=== PATIENT | female | born 1985 | race Caucasian/White ===

== ENCOUNTER 2017-04-02 00:17 | Emergency (ER) | payer MEDICAID ==
[2013-11-14 09:46] VITALS: Ht 165.1 cm; Wt 103.9 kg
[~2017-04-02] VITALS: Ht 165.1 cm; Wt 103.9 kg
[~2017-04-02 00:17] MED LIST: ALB18R INH; ALBU8TAB4 PO; AMOX-362 PO; AZIT-18 PO; CETI-176 PO; CLON-1; CYCL-343 PO; CYCL10TA29 PO; DIA5 PO; FOLI-68 PO; GABA-549 PO; GUAI473L81 PO; HYDR-4309 PO; HYDR2TAB74 PO; LEVO1TBD11 PO; LOR5/325 PO; METH-543 PO; METH4TAB66 PO; MOMR ENA; NAPR-724 PO; NAPR550T20 PO; OXYC-865 PO; PARO-243 PO; PRED20TA6 PO; SERT-173 PO; SULF-198 PO; TOPI-120 PO; ZOLP-350 PO
[2017-04-02] MEDS ORDERED: DICYCLOMINE HCL 10 MG CAP PO ONE (00:50)
[2017-04-02 01:19] LABS: PLATELET COUNT, AUTOMATED 324 K/uL (150-450)
--- NOTE | 2017-04-02 01:21 | ER Report ---
History and Physical Time Seen By MD: 12:20 Hx. of Stated Complaint: PT REPORTS HAVING BRIGHT RED BLOOD IN STOOL. PT REPORTS POSSIBLE C-DIFF. HPI/ROS CHIEF COMPLAINT: Bright red blood in stool, painless HISTORY OF PRESENT ILLNESS: 32-year-old female here for painless bright red blood in stool 3 days, and diarrhea has been bloody. She reports finishing course of Keflex 11 days for laminectomy skin infection and suture site which has been improving. Diarrhea for the past 2 weeks. Bloating nausea occasional vomiting without blood. Reports prior history of anal fissure that was fixed with surgery. No fevers or chills. No suspected toxic food ingestions. She saw an urgent care provider recently who suggested possibility of C. difficile colitis. She reports no priors. She is unsure if she can provide a stool sample today. Pain today is in the right upper quadrant and 7 out of 10. She feels bloated. She feels like she should part or burp but can do neither that she told her coworkers today while at work. She is on a treatment plan for narcotics. REVIEW OF SYSTEMS: Constitutional: No fever, no chills. Eyes: No discharge. ENT: No sore throat. Cardiovascular: No chest pain, no palpitations. Respiratory: No cough, no shortness of breath. Gastrointestinal: Otherwise unremarkable Genitourinary: No hematuria. Musculoskeletal: No back pain. Skin: No rashes. Neurological: No headache. Allergies: Coded Allergies: morphine (Verified Allergy, Intermediate, CHEST PAIN, 04/02/17) pineapple (Verified Allergy, Unknown, 04/02/17) Uncoded Allergies: onions (Allergy, Unknown, 04/29/14) Home Meds Active Scripts Albuterol Sulfate (VENTOLIN HFA) 18 Gm Inh, 2 PUFF INH Q4-6H Y for SHORTNESS OF BREATH, #1 INH Prov:PARISHBASILIO SENIOR MAINTENANCE MACHINIST 02/10/15 Reported Medications Gabapentin (GABAPENTIN) 300 Mg Capsule, 600 MG PO HS, CAPSULE 12/08/16 Gabapentin (GABAPENTIN) 300 Mg Capsule, 300 MG PO BID, CAPSULE 300mg am, 300mg at noon, 05/01/16 Folic Acid (FOLIC ACID) 1 Mg Tablet, 1 MG PO QDAY, TAB 12/17/15 Paroxetine Hcl (PAXIL) 20 Mg Tablet, 60 MG PO QAM, #30 2 Refills 11/13/13 Topiramate (TOPAMAX) 50 Mg Tablet, 200 MG PO BID, #90 2 Refills TAKE ONE IN THE MORNING 2 AT BEDITME 02/04/13 Discontinued Scripts Cyclobenzaprine Hcl (CYCLOBENZAPRINE HCL) 10 Mg Tablet, 10 MG PO Q8H Y for MUSCLE SPASMS, #20 TAB 0 Refills Prov:NATALY WELLER MD 01/18/17 Oxycodone Hcl/Acetaminophen (PERCOCET 5-325 MG TABLET) 1 Each Tablet, 1 EACH PO Q4H Y for PAIN, #10 TAB 0 Refills Prov:NATALY WELLER MD 01/18/17 Amoxicillin (AMOXICILLIN) 500 Mg Capsule, 1 CAP PO Q8H, #15 CAPSULE 0 Refills Prov:NATALY WELLER MD 01/18/17 Oxycodone Hcl/Acetaminophen (PERCOCET 5-325 MG TABLET) 1 Each Tablet, 1 EACH PO Q4H Y for PAIN, #15 TAB 0 Refills Prov:NATALY WELLER MD 01/12/17 Cyclobenzaprine Hcl (CYCLOBENZAPRINE HCL) 10 Mg Tablet, 10 MG PO Q8H Y for MUSCLE SPASMS, #60 TAB 0 Refills Prov:NATALY WELLER MD 01/12/17 Cyclobenzaprine Hcl (CYCLOBENZAPRINE HCL) 10 Mg Tablet, 5-10 MG PO TID Y for MUSCLE SPASMS, #9 TAB Prov:BASILIO LUGO 01/04/17 Oxycodone Hcl/Acetaminophen (PERCOCET 5-325 MG TABLET) 1 Each Tablet, 1 EACH PO Q4-6H Y for PAIN, #20 TAB Prov:BASILIO LUGO 01/04/17 Hx Smoking: Yes Smoking Status: Current: Some Days Smoker Exposure to Second Hand Smoke?: Yes Hx Substance Use Disorder: No Hx Alcohol Use: Yes (few on weekends) Constitutional Vital Sign - Last 24 Hours 04/02/17 04/02/17 04/02/17 04/02/17 00:20 00:25 00:47 01:11 Temp 98.2 Pulse 88 80 Resp 14 B/P (MAP) 132/76 (94) 132/76 123/83 (96) Pulse Ox 96 O2 Delivery Room Air Physical Exam General Appearance: The patient is alert, has no immediate need for airway protection and no signs of toxicity. She is well-appearing and appears to be in no acute distress Eyes: Pupils equal and round no pallor or injection. ENT, Mouth: Mucous membranes are moist. Respiratory: There are no retractions, lungs are clear to auscultation. Cardiovascular: Regular rate and rhythm. No murmurs gallops or rubs Gastrointestinal: She is tender in the right upper quadrant. Otherwise normal exam. Rectal exam was chaperoned by female RN Jazz Balderrama. Anoscopy was performed. See procedure note for results. Neurological: A and O 4 cranial nerve II through XII intact no motor or sensory deficits gross exam no cerebellar deficits gross exam. Skin: Warm and dry, no rashes. Musculoskeletal: Neck is supple non tender. Extremities are nontender, nonswollen and have full range of motion. No peripheral edema DIFFERENTIAL DIAGNOSIS: After history and physical exam differential diagnosis was considered for Escherichia coli Yersinia, Campylobacter, other GI bacterium , viral diarrheal illness, recurrent rectal fistula, internal hemorrhoids, external hemorrhoids, lower GI bleed, colon mass, colon polyps, upper GI bleed, ulcerative peptic disease, duodenitis, gastritis, pancreatitis, cholecystitis, cholelithiasis, choledocholithiasis, no signs of pneumonia, NV, or AAA. This is an incomplete list of diagnoses considered. Medical Decision Making Data Points Result Diagram: 04/02/17 0105 04/02/17 010 Laboratory Hematology Test 04/02/17 01:05 04/02/17 01:30 Red Blood Count 4.69 M/uL (4.17-5.56) Mean Corpuscular Volume 89.3 fL (80.0-96.0) Mean Corpuscular Hemoglobin 30.4 pg (26.0-33.0) Mean Corpuscular Hemoglobin Concent 34.1 g/dL (32.0-36.0) Red Cell Distribution Width 13.4 % (11.5-14.5) Mean Platelet Volume 6.2 fL (7.2-11.1) Neutrophils (%) (Auto) 58.1 % (39.4-72.5) Lymphocytes (%) (Auto) 32.5 % (17.6-49.6) Monocytes (%) (Auto) 7.0 % (4.1-12.4) Eosinophils (%) (Auto) 1.8 % (0.4-6.7) Basophils (%) (Auto) 0.6 % (0.3-1.4) Nucleated RBC Relative Count (auto) 0.0 /100WBC Neutrophils # (Auto) 5.3 K/uL (2.0-7.4) Lymphocytes # (Auto) 3.0 K/uL (1.3-3.6) Monocytes # (Auto) 0.6 K/uL (0.3-1.0) Eosinophils # (Auto) 0.2 K/uL (0.0-0.5) Basophils # (Auto) 0.1 K/uL (0.0-0.1) Nucleated RBC Absolute Count (auto) 0.00 K/uL Sodium Level 140 mmol/L (137-145) Potassium Level 3.7 mmol/L (3.5-5.0) Chloride Level 105 mmol/L (98-107) Carbon Dioxide Level 23 mmol/L (22-31) Blood Urea Nitrogen 13 mg/dl (7-18) Creatinine 0.70 mg/dl (0.52-1.04) Glomerular Filtration Rate Calc > 60.0 Random Glucose 79 mg/dl (75-110) Calcium Level 9.4 mg/dl (8.4-10.2) Total Bilirubin 0.3 mg/dl (0.2-1.3) Aspartate Amino Transf (AST/SGOT) 22 U/L (0-35) Alanine Aminotransferase (ALT/SGPT) 29 U/L (0-56) Alkaline Phosphatase 58 U/L (0-126) Total Protein 8.1 gm/dl (6.3-8.2) Albumin 4.4 g/dl (3.5-5.0) Lipase 107 U/L (23-300) Human Chorionic Gonadotropin, Qual Negative (NEGATIVE) Urine Color Yellow Urine Clarity Cloudy Urine pH 7.0 pH (4.8-9.5) Urine Specific [place] 1.017 Urine Protein Negative mg/dL (NEGATIVE) Urine Glucose (UA) Negative mg/dL (NEGATIVE) Urine Ketones Negative mg/dL (NEGATIVE) Urine Blood Small (NEGATIVE) Urine Nitrite Negative (NEGATIVE) Urine Bilirubin Negative (NEGATIVE) Urine Urobilinogen Negative mg/dL (0.2-1.9) Urine Leukocyte Esterase Trace (NEGATIVE) Urine RBC 3 /HPF (0-2/HPF) Urine WBC 1 /HPF (0-5/HPF) Urine Squamous Epithelial Cells Many /LPF (</=FEW) Urine Bacteria Negative /HPF (NONE-FEW) Urine Mucus None /HPF (NONE-FEW) Chemistry Test 04/02/17 01:05 04/02/17 01:30 White Blood Count 9.1 k/uL (4.5-11.0) Red Blood Count 4.69 M/uL (4.17-5.56) Hemoglobin 14.3 g/dL (12.0-16.0) Hematocrit 41.9 % (34.0-47.0) Mean Corpuscular Volume 89.3 fL (80.0-96.0) Mean Corpuscular Hemoglobin 30.4 pg (26.0-33.0) Mean Corpuscular Hemoglobin Concent 34.1 g/dL (32.0-36.0) Red Cell Distribution Width 13.4 % (11.5-14.5) Platelet Count 324 K/uL (150-450) Mean Platelet Volume 6.2 fL (7.2-11.1) Neutrophils (%) (Auto) 58.1 % (39.4-72.5) Lymphocytes (%) (Auto) 32.5 % (17.6-49.6) Monocytes (%) (Auto) 7.0 % (4.1-12.4) Eosinophils (%) (Auto) 1.8 % (0.4-6.7) Basophils (%) (Auto) 0.6 % (0.3-1.4) Nucleated RBC Relative Count (auto) 0.0 /100WBC Neutrophils # (Auto) 5.3 K/uL (2.0-7.4) Lymphocytes # (Auto) 3.0 K/uL (1.3-3.6) Monocytes # (Auto) 0.6 K/uL (0.3-1.0) Eosinophils # (Auto) 0.2 K/uL (0.0-0.5) Basophils # (Auto) 0.1 K/uL (0.0-0.1) Nucleated RBC Absolute Count (auto) 0.00 K/uL Glomerular Filtration Rate Calc > 60.0 Calcium Level 9.4 mg/dl (8.4-10.2) Total Bilirubin 0.3 mg/dl (0.2-1.3) Aspartate Amino Transf (AST/SGOT) 22 U/L (0-35) Alanine Aminotransferase (ALT/SGPT) 29 U/L (0-56) Alkaline Phosphatase 58 U/L (0-126) Total Protein 8.1 gm/dl (6.3-8.2) Albumin 4.4 g/dl (3.5-5.0) Lipase 107 U/L (23-300) Human Chorionic Gonadotropin, Qual Negative (NEGATIVE) Urine Color Yellow Urine Clarity Cloudy Urine pH 7.0 pH (4.8-9.5) Urine Specific [place] 1.017 Urine Protein Negative mg/dL (NEGATIVE) Urine Glucose (UA) Negative mg/dL (NEGATIVE) Urine Ketones Negative mg/dL (NEGATIVE) Urine Blood Small (NEGATIVE) Urine Nitrite Negative (NEGATIVE) Urine Bilirubin Negative (NEGATIVE) Urine Urobilinogen Negative mg/dL (0.2-1.9) Urine Leukocyte Esterase Trace (NEGATIVE) Urine RBC 3 /HPF (0-2/HPF) Urine WBC 1 /HPF (0-5/HPF) Urine Squamous Epithelial Cells Many /LPF (</=FEW) Urine Bacteria Negative /HPF (NONE-FEW) Urine Mucus None /HPF (NONE-FEW) Urinalysis Test 04/02/17 01:30 Urine Color Yellow Urine Clarity Cloudy Urine pH 7.0 pH (4.8-9.5) Urine Specific [place] 1.017 Urine Protein Negative mg/dL (NEGATIVE) Urine Glucose (UA) Negative mg/dL (NEGATIVE) Urine Ketones Negative mg/dL (NEGATIVE) Urine Blood Small (NEGATIVE) Urine Nitrite Negative (NEGATIVE) Urine Bilirubin Negative (NEGATIVE) Urine Urobilinogen Negative mg/dL (0.2-1.9) Urine Leukocyte Esterase Trace (NEGATIVE) Urine RBC 3 /HPF (0-2/HPF) Urine WBC 1 /HPF (0-5/HPF) Urine Squamous Epithelial Cells Many /LPF (</=FEW) Urine Bacteria Negative /HPF (NONE-FEW) Urine Mucus None /HPF (NONE-FEW) ED Course/Re-evaluation ED Course Risks and benefits of endoscopy performed in the ED were discussed with the patient who consents. Indication: Evaluation for internal hemorrhoids or other source of lower GI bleed. Procedure 04/02/2017 1:10:51 am Procedure note: Anoscopy Indication: Painless bright red blood per rectum Technique: The patient was positions in the left lateral decubitus position and instructed to relax. Surgery lube was applied to the anal scope which was fit previously to the light source. The stylette was placed inside the tube. The device was inserted gently with gentle pressure and stylette was removed. The light in the illuminated the johnston of the rectum and the scope was slowly removed to look for internal hemorrhoids. Findings are as per physical exam. Decision to Disposition Date: Apr 02, 2017 Decision to Disposition Time: 03:39 Depart Departure Latest Vital Signs Vital Signs Date Time Temp Pulse Resp B/P (MAP) Pulse Ox O2 Delivery O2 Flow Rate FiO2 04/02/17 01:11 123/83 (96) 04/02/17 00:47 80 04/02/17 00:25 98.2 14 96 Room Air Impression: Primary Impression: Abdominal pain Additional Impression: Diarrhea Condition: Improved Disposition: HOME OR SELF-CARE Referrals: KING QUINTANILLA SENIOR MAINTENANCE MACHINIST (PCP) New Scripts Loperamide Hcl/Simethicone (IMODIUM MULTI-SYMPTOM REL CPLT) 1 Each Tablet 1 EACH PO DIRECTED Y for DIARRHEA for 7 Days, #20 Prov: DAMIR DIETZ MD 04/02/17 Patient Instructions: Acute Diarrhea (ED) Problem Qualifiers DAMIR DIETZ MD Apr 02, 2017 01:21
[2017-04-02] MEDS ORDERED: MAG HYD/AL HYD/SIMETH 30ML UDC PO ONE (03:10)
[2017-04-02] MEDS ORDERED: LIDOCAINE 2% VISC SLN 15ML UDC PO ONE (03:10)
[2017-04-02] MEDS ORDERED: ATRO/SCOPOL/HYOSCY/PB 5 ML ELX PO ONE ×2 (03:10→03:20)
[2017-04-02] MEDS: GI COCKTAIL 60 ML BTL PO PRN ×2 (03:19→03:20)
--- NOTE | 2017-04-02 03:21 | RADIOLOGY IMAGING REPORT ---
FACILITY: [facility] - [place] PATIENT NAME: Meredith John : 1985 MR: [id number] V: [id number] EXAM DATE: ORDERING PHYSICIAN: DAMIR DIETZ TECHNOLOGIST: Location: [facility] Patient: Meredith John : 1985 Visit/Account:[id number] Date of Sevice: 04/02/2017 GALLBLADDER HISTORY: Abdominal pain COMPARISON: None. FINDINGS: Gallbladder: No gallstones. No wall thickening. No pericholecystic fluid Liver: 17 cm. No focal liver lesions. Common duct: Normal, 3.6 mm diameter. Pancreas: Obscured by overlying bowel gas. Pancreatic head where visualized is grossly normal Right kidney: 10 x 5 x 5 cm. No hydronephrosis. No cortical mass lesions Upper abdominal aorta and IVC: Patent. Ascites: None visualized. IMPRESSION: 1. Negative ultrasound for acute pathology. Specifically no cholelithiasis or cholecystitis change Report Dictated By: Abisai Cortez MD at 04/02/2017 3:04 AM Report E-Signed By: Abisai Cortez MD at 04/02/2017 3:10 AM WSN:[id number]
--- NOTE | 2017-04-02 03:32 | RADIOLOGY IMAGING REPORT ---
FACILITY: [facility] - [place] PATIENT NAME: Meredith John : 1985 MR: [id number] V: [id number] EXAM DATE: ORDERING PHYSICIAN: DAMIR DIETZ TECHNOLOGIST: Location: [facility] - [place] Patient: Meredith John : 1985 Visit/Account:[id number] Date of Sevice: 04/02/2017 CHEST SINGLE AP History: Abdominal pain Comparison 12/16/2014. FINDINGS: Lungs are clear, no effusion. No pneumothorax. Heart size within normal limits. Mediastinal contour w ithin normal limits. IMPRESSION: No evidence of acute cardiopulmonary disease. Report Dictated By: Jose Carlos Sue MD at 04/02/2017 3:27 AM Report E-Signed By: Jose Carlos Sue MD at 04/02/2017 3:28 AM WSN:[id number]
[2017-04-02] MEDS ORDERED: LOPE1TAB55 PO (03:42)
[2017-04-02 04:01] VITALS: BP 110/72
== END 2017-04-02 04:07 | disposition home or self-care (01) ==
LOC: ER 00:18
DX: R10.11 Right upper quadrant pain (principal); R19.7 Diarrhea, unspecified
CPT/HCPCS: 36415; 71010; 76705; 81001; 82040; 82247; 82310; 82374; 82435; 82565; 82947; 83690; 84075; 84132; 84155; 84295; 84450; 84460; 84520; 84703; 85025; 99284

== ENCOUNTER 2017-08-27 18:19 | Emergency (ER) | payer BC, MEDICAID ==
[2013-11-14 09:46] VITALS: Wt 113.4 kg
[~2017-08-27 18:19] MED LIST changes: +LOPE1TAB55 PO; -NAPR-724 PO; +NAPR500T31 PO
[2017-08-27] MEDS ORDERED: NOR25 PO (18:28)
--- NOTE | 2017-08-27 18:35 | ER Report ---
History and Physical Time Seen By MD: 18:35 Hx. of Stated Complaint: SORE THROAT, HEADACHE AND SINUS PRESSURE. REPORTS SHE COMPLETED A COURSE OF AUGMENTIN LAST WEEK FOR SIMILAR SYMPTOMS, BUT HAS NOT FEEL BETTER. HPI/ROS CHIEF COMPLAINT: sore throat, sinus problems HISTORY OF PRESENT ILLNESS: This is a 32 year old female. She has had a couple of weeks of symptoms of cough and sinus problems. She was seen at urgent care. She was told that she had some changes in the right upper lobe of her lungs and thought she might have a sinus infection. She was prescribed 7 days of Augmentin which she completed. She was feeling better, but not completely. Was exposed to family members who have strep and now she is having sore throat and upset stomach. Some loose stools. Intermittently feeling like fevers. Allergies: Coded Allergies: morphine (Verified Allergy, Intermediate, CHEST PAIN, 08/27/17) pineapple (Verified Allergy, Unknown, 08/27/17) Uncoded Allergies: onions (Allergy, Unknown, 04/29/14) Home Meds Active Scripts Azithromycin (ZITHROMAX) 250 Mg Tablet, 2 TAB PO QDAY, #4 TAB 0 Refills Prov:NATALY WELLER MD 08/27/17 Albuterol Sulfate (VENTOLIN HFA) 18 Gm Inh, 2 PUFF INH Q4-6H Y for SHORTNESS OF BREATH, #1 INH Prov:BASILIO LUGO CLINICAL DENTAL TECHNICIAN 02/10/15 Reported Medications Nortriptyline Hcl (NORTRIPTYLINE HCL) 25 Mg Cap, 25 MG PO HS, CAP 08/27/17 Folic Acid (FOLIC ACID) 1 Mg Tablet, 1 MG PO QDAY, TAB 12/17/15 Paroxetine Hcl (PAXIL) 20 Mg Tablet, 60 MG PO QAM, #30 2 Refills 11/13/13 Topiramate (TOPAMAX) 50 Mg Tablet, 200 MG PO BID, #90 2 Refills TAKE ONE IN THE MORNING 2 AT BEDITME 02/04/13 Discontinued Reported Medications Gabapentin (GABAPENTIN) 300 Mg Capsule, 600 MG PO HS, CAPSULE 12/08/16 Gabapentin (GABAPENTIN) 300 Mg Capsule, 300 MG PO BID, CAPSULE 300mg am, 300mg at noon, 05/01/16 Discontinued Scripts Loperamide Hcl/Simethicone (IMODIUM MULTI-SYMPTOM REL CPLT) 1 Each Tablet, 1 EACH PO DIRECTED Y for DIARRHEA for 7 Days, #20 Prov:DAMIR DIETZ MD 04/02/17 Reviewed Nurses Notes: Yes Hx Smoking: Yes Smoking Status: Current: Some Days Smoker Exposure to Second Hand Smoke?: Yes Hx Substance Use Disorder: No Hx Alcohol Use: Yes (few on weekends) Constitutional Vital Sign - Last 24 Hours 08/27/17 08/27/17 08/27/17 08/27/17 18:23 18:24 18:34 19:04 Temp 98.1 Pulse 100 106 100 Resp 18 B/P (MAP) 119/80 (93) 119/80 Pulse Ox 96 95 95 O2 Delivery Room Air 08/27/17 08/27/17 08/27/17 08/27/17 19:09 19:24 19:39 19:54 Pulse 100 109 105 108 Pulse Ox 95 95 94 97 08/27/17 08/27/17 08/27/17 08/27/17 20:06 20:09 20:24 20:30 Pulse 101 B/P (MAP) 127/91 (103) 103/80 (88) Pulse Ox 95 94 08/27/17 20:39 Pulse 108 Pulse Ox 95 Physical Exam General Appearance: The patient is alert, has no immediate need for airway protection and no current signs of toxicity. Eyes: Pupils equal and round, no injection. ENT: Normal oral mucosa. Moist mucous membranes. Posterior oropharynx is very erythematous with exudates. Tympanic membranes are normal. Neck: Neck is supple, submandibular lymphadenopathy which is tender. Respiratory: Chest is non tender, lungs are clear to auscultation. Cardiac: Regular rate and rhythm. Musculoskeletal: Extremities have full range of motion. Skin: No rashes or lesions. DIFFERENTIAL DIAGNOSIS: After history and physical exam differential diagnosis was considered for sore throat, exposure to strep. Unsure is symptoms are viral in origin, incomplete treatment with Augmentin with some GI side effects or new strep. Medical Decision Making Data Points Laboratory Hematology Test 08/27/17 18:31 Group A Streptococcus Screen Negative (NEGATIVE) Chemistry Test 08/27/17 18:31 Group A Streptococcus Screen Negative (NEGATIVE) EKG/Imaging Imaging CHEST PA AND LAT HISTORY: Cough. Sinus discomfort. COMPARISON: 08/12/2017 and studies dating to 02/10/2015. TECHNIQUE: PA and lateral views of the chest. FINDINGS: Pulmonary: Lungs are clear. There is no pneumothorax or pleural effusion. Cardiomediastinal: Cardiac and mediastinal silhouettes are within normal limits. Bones/soft tissues: No acute osseous abnormality. There is stable wedging of T11. The visible abdomen is normal. IMPRESSION: 1. No acute cardiopulmonary process. Report Dictated By: Kayy Morley at 08/27/2017 8:10 PM ED Course/Re-evaluation ED Course Magic mouthwash given to help with throat pain. Chest x-ray and strep negative. Uncertain if symptoms are from failure of treatment, incomplete treatment, or if this was just a viral process all along, but because she was getting better and now worsening, will begin a course of Azithromycin which should cover her for the next 10 days. We discussed symptomatic treatment as well. Decision to Disposition Date: August 27, 2017 Decision to Disposition Time: 20:36 Depart Departure Latest Vital Signs Vital Signs Date Time Temp Pulse Resp B/P (MAP) Pulse Ox O2 Delivery O2 Flow Rate FiO2 08/27/17 20:39 108 95 08/27/17 20:30 103/80 (88) 08/27/17 18:24 98.1 18 Room Air Impression: Primary Impression: Upper respiratory infection Condition: Improved Disposition: HOME OR SELF-CARE Referrals: KING QUINTANILLAP (PCP) New Scripts Azithromycin (ZITHROMAX) 250 Mg Tablet 2 TAB PO QDAY, #4 TAB 0 Refills Prov: NATALY WELLER MD 08/27/17 Patient Instructions: Pharyngitis (ED), Upper Respiratory Infection (ED) Additional Instructions: Take the antibiotic Azithromycin 250mg, two tablets once a day for 2 more days. Magic mouthwash, 1 teaspoon every 6 hours swish, gargle and swallow as needed for sore throat. Problem Qualifiers Primary Impression: Upper respiratory infection URI type: acute pharyngitis Pharyngitis/tonsillitis etiology: unspecified etiology Qualified Codes: J02.9 - Acute pharyngitis, unspecified NATALY WELLER MD August 27, 2017 18:35
[2017-08-27] MEDS ORDERED: LIDOCAINE 2% VISC SLN 15ML UDC PO ONE (20:10)
[2017-08-27] MEDS ORDERED: MAG HYD/AL HYD/SIMETH 30ML UDC PO ONE (20:10)
--- NOTE | 2017-08-27 20:15 | RADIOLOGY IMAGING REPORT ---
FACILITY: [facility] - [place], [place] PATIENT NAME: Meredith John : 1985 MR: [id number] V: [id number] EXAM DATE: ORDERING PHYSICIAN: NATALY WELLER TECHNOLOGIST: Location: [facility] - [place] Patient: Meredith John : 1985 Visit/Account:[id number] Date of Sevice: 08/27/2017 CHEST PA AND LAT HISTORY: Cough. Sinus discomfort. COMPARISON: 08/12/2017 and studies dating to 02/10/2015. TECHNIQUE: PA and lateral views of the chest. FINDINGS: Pulmonary: Lungs are clear. There is no pneumothorax or pleural effusion. Cardiomediastinal: Cardiac and mediastinal silhouettes are within normal limits. Bones/soft tissues: No acute osseous abnormality. There is stable wedging of T11. The visible abdomen is normal. IMPRESSION: 1. No acute cardiopulmonary process. Report Dictated By: Kayy Morley at 08/27/2017 8:10 PM Report E-Signed By: Kayy Morley at 08/27/2017 8:12 PM WSN:[id number]
[2017-08-27 20:30] VITALS: BP 103/80
[2017-08-27] MEDS ORDERED: AZITHROMYCIN 250 MG TAB TH PO ONE (20:35)
[2017-08-27] MEDS ORDERED: AZIT-1 PO (20:38)
== END 2017-08-27 20:42 | disposition home or self-care (01) ==
LOC: ER 18:31
DX: J06.9 Acute upper respiratory infection, unspecified (principal)
CPT/HCPCS: 71046; 87081; 87880; 99284; Q0163

== ENCOUNTER 2017-08-28 20:40 | Emergency (ER) | payer BC ==
[2013-11-14 09:46] VITALS: Wt 113.4 kg
[~2017-08-28 20:40] MED LIST changes: +AZIT-1 PO; +NOR25 PO
--- NOTE | 2017-08-28 20:53 | ER Report ---
History and Physical Time Seen By MD: 20:52 Hx. of Stated Complaint: pt reports headache and cough at home HPI/ROS CHIEF COMPLAINT: Headache, cough HISTORY OF PRESENT ILLNESS: 32-year-old female presents ambulatory to the ER. Patient was seen here yesterday and started on Zithromax for persistent upper respiratory infection. Patient states taking Aleve 4 tablets at once. She is cautioned not to exceed 5 tablets in 24 hours. Patient describes a dull frontal , throbbing headache. Patient notes a persistent cough. She's been using an inhaler. She underwent treatment plan restricting use of narcotics. REVIEW OF SYSTEMS: Respiratory: No cough, no dyspnea. Cardiovascular: No chest pain, no palpitations. Gastrointestinal: No vomiting, no abdominal pain. Musculoskeletal: No back pain. Allergies: Coded Allergies: morphine (Verified Allergy, Intermediate, CHEST PAIN, 08/28/17) pineapple (Verified Allergy, Unknown, 08/28/17) Uncoded Allergies: onions (Allergy, Unknown, 04/29/14) Home Meds Active Scripts Azithromycin (ZITHROMAX) 250 Mg Tablet, 2 TAB PO QDAY, #4 TAB 0 Refills Prov:NATALY WELLER MD 08/27/17 Albuterol Sulfate (VENTOLIN HFA) 18 Gm Inh, 2 PUFF INH Q4-6H Y for SHORTNESS OF BREATH, #1 INH Prov:BASILIO LUGO HAZMAT TRUCK DRIVER 02/10/15 Reported Medications Nortriptyline Hcl (NORTRIPTYLINE HCL) 25 Mg Cap, 25 MG PO HS, CAP 08/27/17 Folic Acid (FOLIC ACID) 1 Mg Tablet, 1 MG PO QDAY, TAB 12/17/15 Paroxetine Hcl (PAXIL) 20 Mg Tablet, 60 MG PO QAM, #30 2 Refills 11/13/13 Topiramate (TOPAMAX) 50 Mg Tablet, 200 MG PO BID, #90 2 Refills TAKE ONE IN THE MORNING 2 AT BEDITME 02/04/13 Discontinued Reported Medications Gabapentin (GABAPENTIN) 300 Mg Capsule, 600 MG PO HS, CAPSULE 12/08/16 Gabapentin (GABAPENTIN) 300 Mg Capsule, 300 MG PO BID, CAPSULE 300mg am, 300mg at noon, 05/01/16 Discontinued Scripts Loperamide Hcl/Simethicone (IMODIUM MULTI-SYMPTOM REL CPLT) 1 Each Tablet, 1 EACH PO DIRECTED Y for DIARRHEA for 7 Days, #20 Prov:DAMIR DIETZ MD 04/02/17 Reviewed Nurses Notes: Yes Old Medical Records Reviewed: Yes Hx Smoking: Yes Smoking Status: Current: Some Days Smoker Exposure to Second Hand Smoke?: Yes Hx Substance Use Disorder: No Hx Alcohol Use: Yes (few on weekends) Constitutional Vital Sign - Last 24 Hours 08/28/17 08/28/17 20:40 21:10 Temp 98.1 Pulse 110 88 Resp 16 16 B/P (MAP) 143/86 136/87 (103) Pulse Ox 95 94 O2 Delivery Room Air Room Air Physical Exam Vital signs stable, afebrile, pulse ox normal General Appearance: The patient is alert, has no immediate need for airway protection and no current signs of toxicity. Eyes: Pupils equal and round no injection. Respiratory: Chest is non tender, lungs are clear to auscultation. Cardiac: regular rate and rhythm Gastrointestinal: Abdomen is soft and non tender, no masses, bowel sounds normal. Musculoskeletal: Neck: Neck is supple and non tender. Extremities have full range of motion and are non tender. Skin: No rashes or lesions. DIFFERENTIAL DIAGNOSIS: After history and physical exam differential diagnosis was considered for headache including but not limited to subarachnoid hemorrhage , migraine headache, tension headache and infectious causes such as meningitis, pharyngitis and sinusitis. Medical Decision Making ED Course/Re-evaluation ED Course Patient was admitted to an examination room. H&P was done. The differential diagnosis was considered. Patient started on Zithromax. Her infection is not improving. We'll give her dose of steroids, Decadron 8 mg by mouth. She'll be given Tylenol for her pain. She is advised to cut back on her leave use. Patient advised to use Mucinex DM. Patient advised to follow-up with primary care if unimproved in 3-5 days. Decision to Disposition Date: August 28, 2017 Decision to Disposition Time: 21:01 Depart Departure Latest Vital Signs Vital Signs Date Time Temp Pulse Resp B/P (MAP) Pulse Ox O2 Delivery O2 Flow Rate FiO2 08/28/17 21:10 88 16 136/87 (103) 94 Room Air 08/28/17 20:40 98.1 Impression: Primary Impression: Headache Additional Impressions: Sinus infection Persistent cough Condition: Improved Disposition: HOME OR SELF-CARE Referrals: LEINEN,KING J HAZMAT TRUCK DRIVER (PCP) Patient Instructions: Sinusitis (ED) Additional Instructions: Alternate Tylenol 1 g and Aleve 440 mg every 6 hours Continue Mucinex DM Follow-up with primary care if unimproved in 2 days Problem Qualifiers Primary Impression: Headache Headache type: unspecified Headache chronicity pattern: acute headache Intractability: not intractable Qualified Codes: R51 - Headache Additional Impressions: Sinus infection Sinusitis location: unspecified location Chronicity: subacute Qualified Codes: J01.90 - Acute sinusitis, unspecified GRACE MANN DO August 28, 2017 20:53
[2017-08-28] MEDS ORDERED: ACETAMINOPHEN 500 MG TAB PO ONE (21:05)
[2017-08-28] MEDS ORDERED: DEXAMETHASONE 4 MG TAB PO ONE (21:05)
[2017-08-28 21:10] VITALS: BP 136/87
== END 2017-08-28 21:10 | disposition home or self-care (01) ==
LOC: ER 20:49
DX: J01.90 Acute sinusitis, unspecified (principal); R51 Headache; R05 Cough
CPT/HCPCS: 99282; J8540

== ENCOUNTER 2017-10-27 17:09 | Emergency (ER) | payer OTHER, BC ==
[2013-11-14 09:46] VITALS: Wt 112.5 kg
[2017-10-27] MEDS ORDERED: MULT1CAP59 PO (17:37)
[2017-10-27] MEDS ORDERED: TRAZ50TA34 PO (17:37)
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
[2017-10-27] MEDS ORDERED: ONDANSETRON 4 MG ODT TABDP SL ONE (18:25)
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
[2017-10-27] MEDS ORDERED: CYCL10TA29 PO (20:06)
[2017-10-27 20:09] VITALS: BP 135/85
[2017-10-27] MEDS ORDERED: CYCLOBENZAPRINE HCL 10 MG TH PO ONE (20:10)
== END 2017-10-27 20:07 | disposition home or self-care (01) ==
LOC: ER 18:03
DX: S16.1XXA Strain of muscle, fascia and tendon at neck level, initial encounter (principal)
CPT/HCPCS: 70450; 72125; 72128; 99284; S0119

== ENCOUNTER 2018-03-07 17:24 | Emergency (ER) | payer BC ==
[2013-11-14 09:46] VITALS: Wt 117.0 kg
[~2018-03-07 17:24] MED LIST changes: -HYDR-4309 PO; +HYDR-653 PO; +MULT1CAP59 PO; +TRAZ50TA34 PO
--- NOTE | 2018-03-07 18:21 | ER Report ---
History and Physical Time Seen By MD: 18:10 Hx. of Stated Complaint: PT REPORTS HAVING SEIZURE YESTERDAY, FEELING "NOT RIGHT" AND HEADACHE ALL DAY TODAY THEN SEIZURE IN WAITING ROOM, PAIN UNDER L BREAST, HEADACHE HPI/ROS CHIEF COMPLAINT: seizure, headache, hematemesis HISTORY OF PRESENT ILLNESS: This is a 33 year old female. She is having some vomiting for a couple of days now. Having several episodes of hematemesis today. Continues to feel nauseated. She had a seizure last night. Another seizure today. Having upper left abdominal pain. No shortness of breath, but pain in left upper abdomen worsens with deep breaths. Having a headache all day. No fever or chills. No chest pain. Denies diarrhea or blood in stool or melena. She denies dysuria or frequency. Feels a little dizzy. No vision changes. No other complaints. Currently on Topamax for her seizures. Conversation with her neurologist to switch to Lamictal coming up next month. Allergies: Coded Allergies: morphine (Verified Allergy, Intermediate, CHEST PAIN, 08/28/17) pineapple (Verified Allergy, Unknown, 08/28/17) Uncoded Allergies: onions (Allergy, Unknown, 04/29/14) Home Meds Active Scripts Promethazine Hcl (PROMETHAZINE HCL) 25 Mg Tablet, 25 MG PO Q8H PRN for NA USEA/VOMITING, #20 TAB 0 Refills Prov:NATALY WELLER MD 03/07/18 Sulfamethoxazole/Trimet 800-160 Mg Tab (BACTRIM DS TABLET) 1 Each Tablet, 1 TAB PO Q12H, #14 TAB 0 Refills Prov:NATALY WELLER MD 03/07/18 Omeprazole (OMEPRAZOLE) 20 Mg Capsule.dr, 1 CAP PO BID, #60 CAP 0 Refills Prov:NATALY WELLER MD 03/07/18 Sucralfate (CARAFATE) 1 Gm Tablet, 1 GM PO QID, #120 TAB 0 Refills Prov:NATALY WELLER MD 03/07/18 Cyclobenzaprine Hcl (CYCLOBENZAPRINE HCL) 10 Mg Tablet, 10 MG PO TID PRN for MUSCLE SPASMS, #21 TAB Prov:BASILIO LUGO 10/27/17 Albuterol Sulfate (VENTOLIN HFA) 18 Gm Inh, 2 PUFF INH Q4-6H PRN for SHORTNESS OF BREATH, #1 INH Prov:BASILIO LUGO [employer] 02/10/15 Reported Medications Multivitamin (MULTIVITAMINS) 1 Each Capsule, 1 EACH PO, CAPSULE 10/27/17 Trazodone Hcl (TRAZODONE HCL) 50 Mg Tablet, 50 MG PO QHS 10/27/17 Folic Acid (FOLIC ACID) 1 Mg Tablet, 1 MG PO QDAY, TAB 12/17/15 Paroxetine Hcl (PAXIL) 20 Mg Tablet, 60 MG PO QAM, #30 2 Refills 11/13/13 Topiramate (TOPAMAX) 50 Mg Tablet, 200 MG PO BID, #90 2 Refills TAKE ONE IN THE MORNING 2 AT [facility] 02/04/13 Discontinued Scripts Hydrocodone Bit/Acetaminophen (HYDROCODON-ACETAMINOPHEN 5-325) 1 Each Tablet, 1 EACH PO Q4H PRN for PAIN, #6 TAB 0 Refills Prov:NATALY WELLER MD 03/07/18 Reviewed Nurses Notes: Yes Hx Smoking: Yes Smoking Status: Current: Some Days Smoker Exposure to Second Hand Smoke?: Yes Hx Substance Use Disorder: No Hx Alcohol Use: Yes (few on weekends) Constitutional Vital Sign - Last 24 Hours 03/07/18 03/07/18 03/07/18 03/07/18 17:36 17:36 17:43 17:50 Temp 99.0 Pulse 170 Resp 14 B/P (MAP) 111/74 (86) 111/78 101/58 (72) 104/71 (82) Pulse Ox 95 O2 Delivery Room Air 03/07/18 03/07/18 03/07/18 03/07/18 17:54 18:00 18:10 18:20 Pulse 77 Resp 10 B/P (MAP) 111/64 (80) 103/55 (71) 106/68 (81) Pulse Ox 96 03/07/18 03/07/18 03/07/18 03/07/18 18:24 18:40 18:54 19:02 Pulse 75 75 Resp 11 22 B/P (MAP) 93/81 (85) 119/77 (91) Pulse Ox 91 96 03/07/18 03/07/18 03/07/18 03/07/18 19:07 19:10 19:20 19:30 Pulse 71 Resp 23 B/P (MAP) ???/??? (1664) ???/??? (1664) 104/60 (75) Pulse Ox 98 03/07/18 03/07/18 03/07/18 03/07/18 19:37 19:40 19:50 20:00 Pulse 73 Resp 9 B/P (MAP) 93/69 (77) 104/26 (52) 108/74 (85) Pulse Ox 96 03/07/18 20:07 Pulse 69 Resp 23 Pulse Ox 97 Physical Exam General Appearance: [The patient is alert.] [No immediate need for airway protection.] [No acute distress.] [Non-toxic in appearance.] [ ] [Eyes:] [Pupils are equal, round.] [Reactive to light.] [No pallor, injection or icterus.] [Extraocular movements are intact.] [ ] [ENT:] [Mucous membranes are moist.] [Normal oral mucosa.] [Posterior oropharynx is normal.] [Normal nasal mucosa.] [Normal tympanic membranes and canals.] [ ] Neck: [Supple and non tender.] [No lymphadenopathy.] Respiratory: [Breathing easily and unlabored.] [Lungs are clear to auscultation.] [There are no retractions or accessory muscle use.] Cardiovascular: [Regular rate and rhythm.] [No murmurs, gallops or rubs.] [Normal capillary refill.] [No edema.] [No carotid bruits.] [ ] Gastrointestinal: [Abdomen is soft and non tender.] [Nondistended.] [No rebound or guarding.] [No masses or organomegaly.] [Normal active bowel sounds.] [No costovertebral angle tenderness with percussion.] [Genitourinary:] [ ] [Neurological:] [Alert and oriented x3.] [Cranial nerves II through XII show no acute deficits on my exam.] [No focal neurologic deficits in the extremities.] [ ] [Skin:] [Warm and dry.] [No rashes.] [Musculoskeletal:] [Extremities are nontender.] [Full range of motion.] [No tenderness in palpation of the cervical, thoracic and lumbar spine.] [ ] [DIFFERENTIAL DIAGNOSIS: After history and physical exam, differential diagnosis was considered for] [ ] Medical Decision Making Data Points Result Diagram: 03/07/18 1837 03/07/187 Laboratory Hematology Test 03/07/18 18:37 03/07/18 19:00 Red Blood Count 4.70 M/uL (4.17-5.56) Mean Corpuscular Volume 88.8 fL (80.0-96.0) Mean Corpuscular Hemoglobin 30.2 pg (26.0-33.0) Mean Corpuscular Hemoglobin Concent 34.0 g/dL (32.0-36.0) Red Cell Distribution Width 13.8 % (11.5-14.5) Mean Platelet Volume 6.4 fL (7.2-11.1) Neutrophils (%) (Auto) 75.1 % (39.4-72.5) Lymphocytes (%) (Auto) 19.7 % (17.6-49.6) Monocytes (%) (Auto) 4.0 % (4.1-12.4) Eosinophils (%) (Auto) 0.7 % (0.4-6.7) Basophils (%) (Auto) 0.5 % (0.3-1.4) Nucleated RBC Relative Count (auto) 0.0 /100WBC Neutrophils # (Auto) 8.0 K/uL (2.0-7.4) Lymphocytes # (Auto) 2.1 K/uL (1.3-3.6) Monocytes # (Auto) 0.4 K/uL (0.3-1.0) Eosinophils # (Auto) 0.1 K/uL (0.0-0.5) Basophils # (Auto) 0.1 K/uL (0.0-0.1) Nucleated RBC Absolute Count (auto) 0.00 K/uL Erythrocyte Sedimentation Rate 17 mm/HOUR (0-20) Prothrombin Time 13.3 seconds (12.0-14.4) Prothromb Time International Ratio 1.01 Activated Partial Thromboplast Time 32 seconds (23-35) Sodium Level 138 mmol/L (137-145) Potassium Level 4.0 mmol/L (3.5-5.0) Chloride Level 109 mmol/L (98-107) Carbon Dioxide Level 19 mmol/L (22-31) Blood Urea Nitrogen 8 mg/dl (7-18) Creatinine 0.70 mg/dl (0.52-1.04) Glomerular Filtration Rate Calc > 60.0 Random Glucose 87 mg/dl (75-110) Calcium Level 8.7 mg/dl (8.4-10.2) Total Bilirubin 0.2 mg/dl (0.2-1.3) Aspartate Amino Transf (AST/SGOT) 27 U/L (0-35) Alanine Aminotransferase (ALT/SGPT) 21 U/L (0-56) Alkaline Phosphatase 42 U/L (0-126) C-Reactive Protein 2.4 mg/dl (<1.0) Total Protein 7.8 g/dl (6.3-8.2) Albumin 4.1 g/dl (3.5-5.0) Human Chorionic Gonadotropin, Qual Negative (NEGATIVE) Urine Color Yellow Urine Clarity Slightly-cloudy Urine pH 5.0 pH (4.8-9.5) Urine Specific [place] 1.010 Urine Protein Negative mg/dL (NEGATIVE) Urine Glucose (UA) Negative mg/dL (NEGATIVE) Urine Ketones Negative mg/dL (NEGATIVE) Urine Blood Large (NEGATIVE) Urine Nitrite Negative (NEGATIVE) Urine Bilirubin Negative (NEGATIVE) Urine Urobilinogen Negative mg/dL (0.2-1.9) Urine Leukocyte Esterase Negative (NEGATIVE) Urine RBC 8 /HPF (0-2/HPF) Urine WBC 2 /HPF (0-5/HPF) Urine Squamous Epithelial Cells Many /LPF (</=FEW) Urine Bacteria Few /HPF (NONE-FEW) Urine Mucus None /HPF (NONE-FEW) Chemistry Test 03/07/18 18:37 03/07/18 19:00 White Blood Count 10.6 k/uL (4.5-11.0) Red Blood Count 4.70 M/uL (4.17-5.56) Hemoglobin 14.2 g/dL (12.0-16.0) Hematocrit 41.7 % (34.0-47.0) Mean Corpuscular Volume 88.8 fL (80.0-96.0) Mean Corpuscular Hemoglobin 30.2 pg (26.0-33.0) Mean Corpuscular Hemoglobin Concent 34.0 g/dL (32.0-36.0) Red Cell Distribution Width 13.8 % (11.5-14.5) Platelet Count 344 K/uL (150-450) Mean Platelet Volume 6.4 fL (7.2-11.1) Neutrophils (%) (Auto) 75.1 % (39.4-72.5) Lymphocytes (%) (Auto) 19.7 % (17.6-49.6) Monocytes (%) (Auto) 4.0 % (4.1-12.4) Eosinophils (%) (Auto) 0.7 % (0.4-6.7) Basophils (%) (Auto) 0.5 % (0.3-1.4) Nucleated RBC Relative Count (auto) 0.0 /100WBC Neutrophils # (Auto) 8.0 K/uL (2.0-7.4) Lymphocytes # (Auto) 2.1 K/uL (1.3-3.6) Monocytes # (Auto) 0.4 K/uL (0.3-1.0) Eosinophils # (Auto) 0.1 K/uL (0.0-0.5) Basophils # (Auto) 0.1 K/uL (0.0-0.1) Nucleated RBC Absolute Count (auto) 0.00 K/uL Erythrocyte Sedimentation Rate 17 mm/HOUR (0-20) Prothrombin Time 13.3 seconds (12.0-14.4) Prothromb Time International Ratio 1.01 Activated Partial Thromboplast Time 32 seconds (23-35) Glomerular Filtration Rate Calc > 60.0 Calcium Level 8.7 mg/dl (8.4-10.2) Total Bilirubin 0.2 mg/dl (0.2-1.3) Aspartate Amino Transf (AST/SGOT) 27 U/L (0-35) Alanine Aminotransferase (ALT/SGPT) 21 U/L (0-56) Alkaline Phosphatase 42 U/L (0-126) C-Reactive Protein 2.4 mg/dl (<1.0) Total Protein 7.8 g/dl (6.3-8.2) Albumin 4.1 g/dl (3.5-5.0) Human Chorionic Gonadotropin, Qual Negative (NEGATIVE) Urine Color Yellow Urine Clarity Slightly-cloudy Urine pH 5.0 pH (4.8-9.5) Urine Specific [place] 1.010 Urine Protein Negative mg/dL (NEGATIVE) Urine Glucose (UA) Negative mg/dL (NEGATIVE) Urine Ketones Negative mg/dL (NEGATIVE) Urine Blood Large (NEGATIVE) Urine Nitrite Negative (NEGATIVE) Urine Bilirubin Negative (NEGATIVE) Urine Urobilinogen Negative mg/dL (0.2-1.9) Urine Leukocyte Esterase Negative (NEGATIVE) Urine RBC 8 /HPF (0-2/HPF) Urine WBC 2 /HPF (0-5/HPF) Urine Squamous Epithelial Cells Many /LPF (</=FEW) Urine Bacteria Few /HPF (NONE-FEW) Urine Mucus None /HPF (NONE-FEW) Coagulation Test 03/07/18 18:37 Prothrombin Time 13.3 seconds Prothromb Time International Ratio 1.01 Activated Partial Thromboplast Time 32 seconds Urinalysis Test 03/07/18 19:00 Urine Color Yellow Urine Clarity Slightly-cloudy Urine pH 5.0 pH (4.8-9.5) Urine Specific [place] 1.010 Urine Protein Negative mg/dL (NEGATIVE) Urine Glucose (UA) Negative mg/dL (NEGATIVE) Urine Ketones Negative mg/dL (NEGATIVE) Urine Blood Large (NEGATIVE) Urine Nitrite Negative (NEGATIVE) Urine Bilirubin Negative (NEGATIVE) Urine Urobilinogen Negative mg/dL (0.2-1.9) Urine Leukocyte Esterase Negative (NEGATIVE) Urine RBC 8 /HPF (0-2/HPF) Urine WBC 2 /HPF (0-5/HPF) Urine Squamous Epithelial Cells Many /LPF (</=FEW) Urine Bacteria Few /HPF (NONE-FEW) Urine Mucus None /HPF (NONE-FEW) EKG/Imaging EKG Interpretation 12 lead EKG: Rhythm: normal sinus rhythm, rate 74 [place]: normal QRS: normal ST segments: normal Imaging Head CT scan without contrast COMPARISONS: Head CT scan without contrast dated October 27, 2017 ADDITIONAL PERTINENT HISTORY: Vomiting yesterday with seizure TECHNIQUE: Multiple axial images were obtained from the skull base to the vertex without IV contrast. One of the following dose optimization techniques was utilized in the performance of this exam: Automated exposure control; adjustment of the mA and/or kV according to the patient's size; or use of an iterative reconstruction technique. Specific details can be referenced in the facility's radiology CT exam operational policy. FINDINGS: Midline shift: Negative Ventricles: Negative Brain parenchyma: Negative Extra-axial spaces: Negative Intracranial vasculature: Negative Osseous structures: Negative Paranasal sinuses and mastoid air cells: Negative Surrounding soft tissues and orbits: Negative IMPRESSION: Normal head CT scan without contrast. Report Dictated By: Joaquín Smith MD at 03/07/2018 7:30 PM Technique: ACUTE ABDOMEN SERIES 3 VIEW HISTORY: Vomiting COMPARISON: None available Findings: The lungs are clear. No pleural effusion or pneumothorax. The cardiomediastinal silhouette is normal. The bowel gas pattern is none distended. Present is moderate stool volume throughout the colon. Impression: 1. Moderate stool volume throughout the colon. Report Dictated By: Gadiel Flores DO at 03/07/2018 7:27 PM ED Course/Re-evaluation Clinical Indication for ER IV: Hydration, IV Access ED Course After initial evaluation, imaging was ordered and this was negative. Labs also were negative other than changes in the urine suggesting urinary tract infection. This could certainly explain all of her symptoms including the headache, seizures with lowering of the seizure threshold, as well as the vomiting. I think the hematemesis might represent underlying gastritis or ulcer disease however her labs are unremarkable. I reviewed all this with the patient indicating she should see someone to evaluate the GI tract for possible ulcer disease or gastritis. She will follow-up with her neurologist for the seizures and they may elect to change medicines as they were planning. We will start treating urinary symptoms with Bactrim. Culture has been ordered. We will start her on Bactrim, Carafate, omeprazole, and provide some Phenergan for nausea. Decision to Disposition Date: Mar 07, 2018 Decision to Disposition Time: 19:51 Depart Departure Latest Vital Signs Vital Signs Date Time Temp Pulse Resp B/P (MAP) Pulse Ox O2 Delivery O2 Flow Rate FiO2 03/07/18 20:07 69 23 97 03/07/18 20:00 108/74 (85) 03/07/18 17:36 99.0 Room Air Impression: Primary Impression: UTI (lower urinary tract infection) Additional Impression: Seizure Condition: Improved Disposition: HOME OR SELF-CARE Referrals: KING QUINTANILLA (PCP) New Scripts Promethazine Hcl (PROMETHAZINE HCL) 25 Mg Tablet 25 MG PO Q8H PRN for NAUSEA/VOMITING, #20 TAB 0 Refills Prov: NATALY WELLER MD 03/07/18 Sulfamethoxazole/Trimet 800-160 Mg Tab (BACTRIM DS TABLET) 1 Each Tablet 1 TAB PO Q12H, #14 TAB 0 Refills Prov: NATALY WELLER MD 12/4/18 Omeprazole (OMEPRAZOLE) 20 Mg Capsule. 1 CAP PO BID, #60 CAP 0 Refills Prov: NATALY WELLER MD 03/07/18 Sucralfate (CARAFATE) 1 Gm Tablet 1 GM PO QID, #120 TAB 0 Refills Prov: NATALY WELLER MD 03/07/18 Patient Instructions: Recurrent Seizures in Adults (ED), Urinary Tract Infection in Women (ED) Additional Instructions: Your symptoms appear to be likely due to a urinary tract infection. This is likely causing the nausea and vomiting as well as lowering your thr eshold for seizures, making these more likely. We are going to start you on an antibiotic called Bactrim DS. Take this twice a day for 7 days. Follow-up with your urologist as planned. No changes to seizure medications at this time. The blood you are seeing with vomiting and abdominal pain could be due to an underlying ulcer disease or gastritis and presented because you are vomiting associated with the urinary tract infection. We would like to have you start Omeprazole and Carafate and see a prism inspector or surgeon who can evaluate for ulcer disease. Carafate 1g tablets four times a day. Omeprazole 20mg twice a day. Problem Qualifiers NATALY WELLER MD Mar 07, 2018 18:21
[2018-03-07] MEDS ORDERED: PANTOPRAZOLE SOD 40 MG IV VIAL IVP ONE (18:25)
[2018-03-07] MEDS ORDERED: PROMETHAZINE 25 MG/ML 1 ML AMP IVP ONE (18:25)
[2018-03-07] MEDS ORDERED: NS(*) 0.9% 1000 ML BAG 1,000 ML IV ONE (18:25)
[2018-03-07] MEDS ORDERED: diphenhydrAMINE 50 MG/ML VIAL IVP ONE (18:25)
--- NOTE | 2018-03-07 18:30 | EKG ---
FACILITY: [facility] PATIENT NAME: LOREN SAMPSON : [id number] MR: [id number] V: [id number] EXAM DATE: ORDERING PHYSICIAN: NATALY WELLER TECHNOLOGIST: ALANA Jackson Reason : SEIZURES Blood Pressure : / mmHG Vent. Rate : 074 BPM Atrial Rate : 074 BPM P-R Int : 138 ms QRS Dur : 094 ms QT Int : 384 ms P-R-T Axes : -13 030 008 degrees QTc Int : 426 ms Normal sinus rhythm Normal ECG No previous ECGs available Confirmed by GENA JOSEPH ([id number]) on 03/07/2018 6:36:42 PM Referred By: FIDEL Confirmed By:GENA JOSEPH
[2018-03-07 18:43] LABS: PLATELET COUNT, AUTOMATED 344 K/uL (150-450)
[2018-03-07 18:52] LABS: INR 1.01
--- NOTE | 2018-03-07 19:32 | RADIOLOGY IMAGING REPORT ---
FACILITY: [facility] PATIENT NAME: Meredith John : 1985 MR: [id number] V: [id number] EXAM DATE: ORDERING PHYSICIAN: NATALY WELLER TECHNOLOGIST: Location: [facility] - [place] Patient: Meredith John : 1985 Visit/Account:[id number] Date of Sevice: 03/07/2018 Technique: ACUTE ABDOMEN SERIES 3 VIEW HISTORY: Vomiting COMPARISON: None available Findings: The lungs are clear. No pleural effusion or pneumothorax. The cardiomediastinal silhouett e is normal. The bowel gas pattern is none distended. Present is moderate stool volume throughout the colon. Impression: 1. Moderate stool volume throughout the colon. Report Dictated By: Gadiel Flores DO at 03/07/2018 7:27 PM Report E-Signed By: Gadiel Flores DO at 03/07/2018 7:28 PM WSN:[id number]
--- NOTE | 2018-03-07 19:37 | RADIOLOGY IMAGING REPORT ---
FACILITY: [facility] PATIENT NAME: Meredith John : 1985 MR: [id number] V: [id number] EXAM DATE: ORDERING PHYSICIAN: NATALY WELLER TECHNOLOGIST: Location: [facility] - [place] Patient: Meredith John : 1985 Visit/Account:[id number] Date of Sevice: 03/07/[address] scan without contrast COMPARISONS: Head CT scan without contrast dated October 27, 2017 ADDITIONAL PERTINENT HISTORY: Vomiting yesterday with seizure TECHNIQUE: Multiple axial images were obtained from the skull base to the vertex without IV contrast . One of the following dose optimization techniques was utilized in the performance of this exam: Aut omated exposure control; adjustment of the mA and/or kV according to the patient's size; or use of an iterative reconstruction technique. Specific details can be referenced in the facility's radiology CT exam operational policy. FINDINGS: Midline shift: Negative Ventricles: Negative Brain parenchyma: Negative Extra-axial spaces: Negative Intracranial vasculature: Negative Osseous structures: Negative Paranasal sinuses and mastoid air cells: Negative Surrounding soft tissues and orbits: Negative IMPRESSION: Normal head CT scan without contrast. Report Dictated By: Joaquín Smith MD at 03/07/2018 7:30 PM Report E-Signed By: Joaquín Smith MD at 03/07/2018 7:33 PM WSN:[id number]
[2018-03-07] MEDS ORDERED: SUCRALFATE 1 GM TAB PO ONE (19:50)
[2018-03-07] MEDS ORDERED: TRIMETH/SULFA DS 160-800MG TAB PO ONE (19:50)
[2018-03-07] MEDS ORDERED: SULF-198 PO (19:55)
[2018-03-07] MEDS ORDERED: OMEP-125 PO (19:55)
[2018-03-07] MEDS ORDERED: PROM-110 PO (19:55)
[2018-03-07] MEDS ORDERED: SUCR1TAB85 PO (19:55)
[2018-03-07] MEDS ORDERED: LOR5/325 PO (19:55)
[2018-03-07 20:00] VITALS: BP 108/74
[2018-03-07] MEDS ORDERED: ACET/HYDROC 5/325MG TH ER ONLY 2 TAB/BOTTLE PO ONE (20:00)
[2018-03-07] MEDS ORDERED: PROMETHAZINE HCL 25 MG TAB TH 2 TAB/BOTTLE PO ONE (20:00)
== END 2018-03-07 20:18 | disposition home or self-care (01) ==
LOC: ER 18:03
DX: N39.0 Urinary tract infection, site not specified (principal); R56.9 Unspecified convulsions
CPT/HCPCS: 36415; 70450; 74022; 81001; 84703; 85025; 85610; 85651; 85730; 86140; 87088; 93005; 96361; 96374; 96375; 99284; C9113; J1200; J2550; J7030; 82040; 82247; 82310; 82374; 82435; 82565; 82947; 84075; 84132; 84155; 84295; 84450; 84460; 84520

== ENCOUNTER 2018-06-10 18:29 | Emergency (ER) | payer BC ==
[2013-11-14 09:46] VITALS: Wt 108.9 kg
[~2018-06-10 18:29] MED LIST changes: +OMEP-125 PO; +PROM-110 PO; +SUCR1TAB85 PO
--- NOTE | 2018-06-10 18:39 | ER Report ---
History and Physical Time Seen By MD: 18:39 HPI/ROS CHIEF COMPLAINT: Upper abdominal pain HISTORY OF PRESENT ILLNESS: This is a 33-year-old female. She has upper abdominal pain, radiating to her mid back. Worsens with deep breaths and movement. Does not seem to worsen with eating. Normal bowels without blood or melena. Normal urination. Has felt nauseated through the day but has not been vomiting. Last bowel movement was on Tuesday, 5 days ago. No cough or shortness of breath. REVIEW OF SYSTEMS: Constitutional: No fever or chills. Eyes: No vision changes. ENT: No sore throat. No congestion. Cardiovascular: No palpitations. Respiratory: No cough. No shortness of breath. Gastrointestinal: As above. Genitourinary: No dysuria. No frequency Musculoskeletal: Chronic back pain, no other musculoskeletal pain. Skin: No rashes. Neurological: No numbness. No weakness. Allergies: Coded Allergies: ketorolac (Verified Allergy, Mild, RASH IN MOUTH , 06/10/18) tramadol (Verified Allergy, Mild, "LOWERS SEIZURE THRESHOLD", 06/10/18) pineapple (Verified Allergy, Unknown, 08/28/17) Uncoded Allergies: onions (Allergy, Unknown, 04/29/14) Home Meds Active Scripts Pantoprazole Sodium (PANTOPRAZOLE SODIUM) 40 Mg Tablet.dr, 40 MG PO BID, #60 TAB.SR 0 Refills Prov:NATALY WELLER MD 06/10/18 Promethazine Hcl (PROMETHAZINE HCL) 25 Mg Tablet, 25 MG PO Q8H PRN for NAUSEA/VOMITING, #20 TAB 0 Refills Prov:NATALY WELLER MD 03/07/18 Albuterol Sulfate (VENTOLIN HFA) 18 Gm Inh, 2 PUFF INH Q4-6H PRN for SHORTNESS OF BREATH, #1 INH Prov:BASILIO LUGO 02/10/15 Reported Medications Lamotrigine (LAMICTAL) 100 Mg Tablet, 100 MG PO BID 06/10/18 Multivitamin (MULTIVITAMINS) 1 Each Capsule, 1 EACH PO, CAPSULE 10/27/17 Trazodone Hcl (TRAZODONE HCL) 50 Mg Tablet, 50 MG PO QHS 10/27/17 Folic Acid (FOLIC ACID) 1 Mg Tablet, 1 MG PO QDAY, TAB 12/17/15 Paroxetine Hcl (PAXIL) 20 Mg Tablet, 60 MG PO QAM, #30 2 Refills 11/13/13 Discontinued Reported Medications Topiramate (TOPAMAX) 50 Mg Tablet, 200 MG PO BID, #90 2 Refills TAKE ONE IN THE MORNING 2 AT BEDITME 02/04/13 Discontinued Scripts Sulfamethoxazole/Trimet 800-160 Mg Tab (BACTRIM DS TABLET) 1 Each Tablet, 1 TAB PO Q12H, #14 TAB 0 Refills Prov:NATALY WELLER MD 03/07/18 Omeprazole (OMEPRAZOLE) 20 Mg Capsule.dr, 1 CAP PO BID, #60 CAP 0 Refills Prov:NATALY WELLER MD 03/07/18 Sucralfate (CARAFATE) 1 Gm Tablet, 1 GM PO QID, #120 TAB 0 Refills Prov:NATALY WELLER MD 03/07/18 Cyclobenzaprine Hcl (CYCLOBENZAPRINE HCL) 10 Mg Tablet, 10 MG PO TID PRN for MUSCLE SPASMS, #21 TAB Prov:BASILIO LUGO PHARMACEUTICAL SALES SPECIALIST 10/27/17 Reviewed Nurses Notes: Yes Hx Smoking: Yes Smoking Status: Current: Some Days Smoker Exposure to Second Hand Smoke?: Yes Hx Substance Use Disorder: No Hx Alcohol Use: Yes (few on weekends) Constitutional Vital Sign - Last 24 Hours 06/10/18 06/10/18 06/10/18 06/10/18 18:33 18:44 18:59 19:00 Temp 98.2 Pulse 84 81 Resp 16 B/P (MAP) 107/67 (80) Pulse Ox 93 92 92 O2 Delivery Room Air 06/10/18 06/10/18 06/10/18 06/10/18 19:14 19:29 19:44 19:59 Pulse 79 90 82 77 Pulse Ox 93 95 96 93 06/10/18 06/10/18 06/10/18 06/10/18 20:04 20:19 20:22 20:27 Pulse 73 68 67 B/P (MAP) 112/51 (71) Pulse Ox 95 95 95 06/10/18 06/10/18 06/10/18 06/10/18 20:30 20:32 20:37 20:42 Pulse 70 72 72 B/P (MAP) 111/67 (82) Pulse Ox 95 99 95 06/10/18 06/10/18 06/10/18 06/10/18 20:47 20:52 20:57 21:00 Pulse 73 75 76 B/P (MAP) 112/62 (79) Pulse Ox 95 85 93 06/10/18 06/10/18 06/10/18 06/10/18 21:02 21:07 21:12 21:17 Pulse 70 76 77 77 Pulse Ox 93 93 93 93 06/10/18 06/10/18 06/10/18 21:22 21:30 21:37 Pulse 75 71 B/P (MAP) 107/72 (84) Pulse Ox 91 92 Physical Exam General Appearance: The patient is alert. No acute distress. Non-toxic in appearance. Eyes: Pupils are equal, round. No pallor, injection or icterus. ENT: Mucous membranes are moist. Normal oral mucosa. Posterior oropharynx is normal. Neck: Supple and non tender. Respiratory: Lungs are clear to auscultation. Cardiovascular: Regular rate and rhythm. No murmurs, gallops or rubs. Normal capillary refill. Gastrointestinal: Abdomen is soft, tender in epigastric area and across upper abdomen. Nondistended. No rebound or guarding. Normal active bowel sounds. Has bilateral CVA area tenderness with percussion and palpation. Neurological: Alert and oriented x3. No focal neurologic deficits Skin: Warm and dry. No rashes. Musculoskeletal: Extremities are nontender. Has tenderness throughout the lower back. DIFFERENTIAL DIAGNOSIS: After history and physical exam, differential diagnosis was considered for epigastric abdominal pain with radiation to the back including but not limited to biliary colic, dissection, peptic ulcer disease, pa ncreatitis, and gastroenteritis. Medical Decision Making Data Points Result Diagram: 06/10/18191006/10/181910 Laboratory Hematology Test 06/10/18 18:49 06/10/18 19:11 Urine Color Yellow Urine Clarity Cloudy Urine pH 7.0 pH (4.8-9.5) Urine Specific Loco 1.018 Urine Protein Negative mg/dL (NEGATIVE) Urine Glucose (UA) Negative mg/dL (NEGATIVE) Urine Ketones Negative mg/dL (NEGATIVE) Urine Blood Small (NEGATIVE) Urine Nitrite Negative (NEGATIVE) Urine Bilirubin Negative (NEGATIVE) Urine Urobilinogen Negative mg/dL (0.2-1.9) Urine Leukocyte Esterase Large (NEGATIVE) Urine RBC 5 /HPF (0-2/HPF) Urine WBC 11 /HPF (0-5/HPF) Urine Squamous Epithelial Cells Many /LPF (</=FEW) Urine Bacteria Moderate /HPF (NONE-FEW) Urine Mucus None /HPF (NONE-FEW) Red Blood Count 4.60 M/uL (4.17-5.56) Mean Corpuscular Volume 88.0 fL (80.0-96.0) Mean Corpuscular Hemoglobin 29.7 pg (26.0-33.0) Mean Corpuscular Hemoglobin Concent 33.7 g/dL (32.0-36.0) Red Cell Distribution Width 13.4 % (11.5-14.5) Mean Platelet Volume 6.8 fL (7.2-11.1) Neutrophils (%) (Auto) 66.0 % (39.4-72.5) Lymphocytes (%) (Auto) 26.1 % (17.6-49.6) Monocytes (%) (Auto) 6.5 % (4.1-12.4) Eosinophils (%) (Auto) 1.0 % (0.4-6.7) Basophils (%) (Auto) 0.4 % (0.3-1.4) Nucleated RBC Relative Count (auto) 0.0 /100WBC Neutrophils # (Auto) 5.6 K/uL (2.0-7.4) Lymphocytes # (Auto) 2.2 K/uL (1.3-3.6) Monocytes # (Auto) 0.6 K/uL (0.3-1.0) Eosinophils # (Auto) 0.1 K/uL (0.0-0.5) Basophils # (Auto) 0.0 K/uL (0.0-0.1) Nucleated RBC Absolute Count (auto) 0.00 K/uL Sodium Level 140 mmol/L (137-145) Potassium Level 4.0 mmol/L (3.5-5.0) Chloride Level 106 mmol/L (98-107) Carbon Dioxide Level 23 mmol/L (22-31) Blood Urea Nitrogen 10 mg/dl (7-18) Creatinine 0.80 mg/dl (0.52-1.04) Glomerular Filtration Rate Calc > 60.0 Random Glucose 81 mg/dl (75-110) Calcium Level 9.0 mg/dl (8.4-10.2) Total Bilirubin 0.2 mg/dl (0.2-1.3) Aspartate Amino Transf (AST/SGOT) 19 U/L (0-35) Alanine Aminotransferase (ALT/SGPT) 21 U/L (0-56) Alkaline Phosphatase 51 U/L (0-126) C-Reactive Protein 2.2 mg/dl (<1.0) Total Protein 7.7 g/dl (6.3-8.2) Albumin 4.3 g/dl (3.5-5.0) Amylase Level 62 U/L (0-110) Lipase 91 U/L (23-300) Human Chorionic Gonadotropin, Qual Negative (NEGATIVE) Helicobacter pylori IgG Antibody Negative (NEGATIVE) Chemistry Test 06/10/18 18:49 06/10/18 19:11 Urine Color Yellow Urine Clarity Cloudy Urine pH 7.0 pH (4.8-9.5) Urine Specific Loco 1.018 Urine Protein Negative mg/dL (NEGATIVE) Urine Glucose (UA) Negative mg/dL (NEGATIVE) Urine Ketones Negative mg/dL (NEGATIVE) Urine Blood Small (NEGATIVE) Urine Nitrite Negative (NEGATIVE) Urine Bilirubin Negative (NEGATIVE) Urine Urobilinogen Negative mg/dL (0.2-1.9) Urine Leukocyte Esterase Large (NEGATIVE) Urine RBC 5 /HPF (0-2/HPF) Urine WBC 11 /HPF (0-5/HPF) Urine Squamous Epithelial Cells Many /LPF (</=FEW) Urine Bacteria Moderate /HPF (NONE-FEW) Urine Mucus None /HPF (NONE-FEW) White Blood Count 8.5 k/uL (4.5-11.0) Red Blood Count 4.60 M/uL (4.17-5.56) Hemoglobin 13.7 g/dL (12.0-16.0) Hematocrit 40.5 % (34.0-47.0) Mean Corpuscular Volume 88.0 fL (80.0-96.0) Mean Corpuscular Hemoglobin 29.7 pg (26.0-33.0) Mean Corpuscular Hemoglobin Concent 33.7 g/dL (32.0-36.0) Red Cell Distribution Width 13.4 % (11.5-14.5) Platelet Count 279 K/uL (150-450) Mean Platelet Volume 6.8 fL (7.2-11.1) Neutrophils (%) (Auto) 66.0 % (39.4-72.5) Lymphocytes (%) (Auto) 26.1 % (17.6-49.6) Monocytes (%) (Auto) 6.5 % (4.1-12.4) Eosinophils (%) (Auto) 1.0 % (0.4-6.7) Basophils (%) (Auto) 0.4 % (0.3-1.4) Nucleated RBC Relative Count (auto) 0.0 /100WBC Neutrophils # (Auto) 5.6 K/uL (2.0-7.4) Lymphocytes # (Auto) 2.2 K/uL (1.3-3.6) Monocytes # (Auto) 0.6 K/uL (0.3-1.0) Eosinophils # (Auto) 0.1 K/uL (0.0-0.5) Basophils # (Auto) 0.0 K/uL (0.0-0.1) Nucleated RBC Absolute Count (auto) 0.00 K/uL Glomerular Filtration Rate Calc > 60.0 Calcium Level 9.0 mg/dl (8.4-10.2) Total Bilirubin 0.2 mg/dl (0.2-1.3) Aspartate Amino Transf (AST/SGOT) 19 U/L (0-35) Alanine Aminotransferase (ALT/SGPT) 21 U/L (0-56) Alkaline Phosphatase 51 U/L (0-126) C-Reactive Protein 2.2 mg/dl (<1.0) Total Protein 7.7 g/dl (6.3-8.2) Albumin 4.3 g/dl (3.5-5.0) Amylase Level 62 U/L (0-110) Lipase 91 U/L (23-300) Human Chorionic Gonadotropin, Qual Negative (NEGATIVE) Helicobacter pylori IgG Antibody Negative (NEGATIVE) Urinalysis Test 06/10/18 18:49 Urine Color Yellow Urine Clarity Cloudy Urine pH 7.0 pH (4.8-9.5) Urine Specific Loco 1.018 Urine Protein Negative mg/dL (NEGATIVE) Urine Glucose (UA) Negative mg/dL (NEGATIVE) Urine Ketones Negative mg/dL (NEGATIVE) Urine Blood Small (NEGATIVE) Urine Nitrite Negative (NEGATIVE) Urine Bilirubin Negative (NEGATIVE) Urine Urobilinogen Negative mg/dL (0.2-1.9) Urine Leukocyte Esterase Large (NEGATIVE) Urine RBC 5 /HPF (0-2/HPF) Urine WBC 11 /HPF (0-5/HPF) Urine Squamous Epithelial Cells Many /LPF (</=FEW) Urine Bacteria Moderate /HPF (NONE-FEW) Urine Mucus None /HPF (NONE-FEW) EKG/Imaging Imaging CT CTA CHEST ABDOMEN PELVIS W & W/O HISTORY: Abdominal pain ADDITIONAL HISTORY: None. TECHNIQUE: Initially noncontrasted CT of the chest, abdomen and pelvis was performed in 1 mm contiguous helical increments. CTA chest, abdomen and pelvis with contrast. 3D coronal slab MIPs and 2D reconstructions in the coronal and sagittal planes were also created. One of the following dose optimization techniques was utilized in the performance of this exam: Automated exposure control; adjustment of the mA and/or kV according to the patient's size; or use of an iterative reconstruction technique. Specific details can be referenced in the facility's radiology CT exam operational policy. CONTRAST: 75 cc of Isovue-370 COMPARISON: CT abdomen and pelvis 04/02/2014 FINDINGS: Vessels: The thoracic and abdominal aorta are normal in caliber without evidence for dissection. Mid ascending thoracic artery measures 2.7 cm. Mid descending thoracic aorta measures 1.8 cm. Infrarenal abdominal aorta measures 1.4 cm. Great vessels are widely patent. There are separate origins of the common hepatic and splenic artery from the aorta. SMA and NATO are patent. There are 2 patent right renal arteries and a single patent left renal artery. Iliac arteries are widely patent although contrast opacification is slightly limited. Chest: Lower neck: Negative. Heart/pericardium: Negative. Mediastinum/hilum/lymph nodes: Negative. Lungs/pleura: Negative. Bones/soft tissues: Negative. Other findings: None significant Abdomen and Pelvis: Hepatobiliary: Negative. Spleen: Negative. Adrenals: Negative. Pancreas: Negative. /retroperitoneum: Left ovarian follicle measures 2.3 cm Bowel/peritoneum/mesentery: Appendix is not visualized but there are no inflammatory changes around cecum Lymph nodes: Negative. Bones/body wall: Negative. Other findings: None significant IMPRESSION: 1. The thoracic and abdominal aorta are normal in caliber without evidence for aneurysm or dissection. 2. 2.3 similar left ovarian follicle. 3. Otherwise, no acute pathology identified Report Dictated By: Carlin Hernandez MD at 06/10/2018 8:18 PM ED Course/Re-evaluation Clinical Indication for ER IV: Hydration, IV Access ED Course Patient does have a history of gastroesophageal reflux disease and suspected gastritis. She has been on a proton pump inhibitor in the past, Carafate has been avoided because of her seizure medicine she has to take multiple times a day. She has been off the proton pump inhibitor for a few weeks now. Laboratory studies were unremarkable and the CT scan did not show cause of pain. We did try GI cocktail which did not have any effect on pain. Gave him IV Protonix. Discussed all this with the patient and recommended that she follow-up for upper endoscopy either with gastroenterology or with general surgery here in town. She can see her primary care provider to discuss this further or make an appointment with one of our general surgeons. We are going to restart her on Protonix. Decision to Disposition Date: Jun 10, 2018 Decision to Disposition Time: 21:31 Depart Departure Latest Vital Signs Vital Signs Date Time Temp Pulse Resp B/P (MAP) Pulse Ox O2 Delivery O2 Flow Rate FiO2 06/10/18 21:37 71 92 06/10/18 21:30 107/72 (84) 06/10/18 18:33 98.2 16 Room Air Impression: Primary Impression: Epigastric abdominal pain Condition: Condition Unchanged Disposition: HOME OR SELF-CARE Referrals: GABRIELLA BINGHAM MD (PCP) DEVON VELAZQUEZ JOHN A MD New Scripts Pantoprazole Sodium (PANTOPRAZOLE SODIUM) 40 Mg Tablet. 40 MG PO BID, #60 TAB.SR 0 Refills Prov: NATALY WELLER MD 06/10/18 Patient Instructions: Diet for Stomach Ulcers and Gastritis (ED), Epigastric Pain (ED) Additional Instructions: Recommend Tylenol as needed for pain. Protonix (pantoprazole) 40mg twice a day (acid reducing medicine). Consider seeing general surgery or gastroenterology for consideration of upper endoscopy. Dr. Kothari and Dr. Velazquez contact information given. NATALY WELLER MD Jun 10, 2018 18:39
[2018-06-10] MEDS ORDERED: LAMO100T56 PO (18:44)
[2018-06-10] MEDS ORDERED: NS(*) 0.9% 1000 ML BAG 1,000 ML IV ONE (18:53)
[2018-06-10] MEDS ORDERED: PROMETHAZINE 25 MG/ML 1 ML AMP IVP ONE (18:55)
[2018-06-10] MEDS ORDERED: IOPAMIDOL 76% 100 ML INFUS BTL 100 ML ONE (19:11)
[2018-06-10] MEDS ORDERED: NS(*) 0.9% 50 ML BAG 50 ML ONE (19:12)
[2018-06-10 19:36] LABS: PLATELET COUNT, AUTOMATED 279 K/uL (150-450)
--- NOTE | 2018-06-10 20:37 | RADIOLOGY IMAGING REPORT ---
[place] [facility] [place] Meredith John : 1985 MR: [id number] V: [id number] EXAM DATE: ORDERING PHYSICIAN: NATALY WELLER TECHNOLOGIST: Location: [facility] - [place] Patient: Meredith John : 1985 Visit/Account:[id number] Date of Sevice: 06/10/2018 CT CTA CHEST ABDOMEN PELVIS W & W/O HISTORY: Abdominal pain ADDITIONAL HISTORY: None. TECHNIQUE: Initially noncontrasted CT of the chest, abdomen and pelvis was performed in 1 mm contigu ous helical increments. CTA chest, abdomen and pelvis with contrast. 3D coronal slab MIPs and 2D re constructions in the coronal and sagittal planes were also created. One of the following dose optimiz ation techniques was utilized in the performance of this exam: Automated exposure control; adjustment of the mA and/or kV according to the patient's size; or use of an iterative reconstruction techniqu e. Specific details can be referenced in the facility's radiology CT exam operational policy. CONTRAST: 75 cc of Isovue-370 COMPARISON: CT abdomen and pelvis 04/02/2014 FINDINGS: Vessels: The thoracic and abdominal aorta are normal in caliber without evidence for dissection. Mid ascending thoracic artery measures 2.7 cm. Mid descending thoracic aorta measures 1.8 cm. Infra renal abdominal aorta measures 1.4 cm. Great vessels are widely patent. There are separate origins of the common hepatic and splenic artery from the aorta. SMA and NATO are patent. There are 2 patent right renal arteries and a single patent left renal artery. Iliac arteri es are widely patent although contrast opacification is slightly limited. Chest: Lower neck: Negative. Heart/pericardium: Negative. Mediastinum/hilum/lymph nodes: Negative. Lungs/pleura: Negative. Bones/soft tissues: Negative. Other findings: None significant Abdomen and Pelvis: Hepatobiliary: Negative. Spleen: Negative. Adrenals: Negative. Pancreas: Negative. /retroperitoneum: Left ovarian follicle measures 2.3 cm Bowel/peritoneum/mesentery: Appendix is not visualized but there are no inflammatory changes around cecum Lymph nodes: Negative. Bones/body wall: Negative. Other findings: None significant IMPRESSION: 1. The thoracic and abdominal aorta are normal in caliber without evidence for aneurysm or dissectio n. 2. 2.3 similar left ovarian follicle. 3. Otherwise, no acute pathology identified Report Dictated By: Carlin Hernandez MD at 06/10/2018 8:18 PM Report E-Signed By: Carlin Hernandez MD at 06/10/2018 8:33 PM WSN:[email or web address]
[2018-06-10] MEDS ORDERED: LIDOCAINE 2% VISC SLN 15ML UDC PO ONE (20:50)
[2018-06-10] MEDS ORDERED: PANTOPRAZOLE SOD 40 MG IV VIAL IVP ONE (20:50)
[2018-06-10] MEDS ORDERED: MAG HYD/AL HYD/SIMETH 30ML UDC PO ONE (20:50)
[2018-06-10] MEDS ORDERED: ATRO/SCOPOL/HYOSCY/PB 5 ML ELX PO ONE (20:50)
[2018-06-10 21:30] VITALS: BP 107/72
[2018-06-10] MEDS ORDERED: PANT40TA65 PO (21:32)
== END 2018-06-10 21:44 | disposition home or self-care (01) ==
LOC: ER 18:44
DX: R10.13 Epigastric pain (principal)
CPT/HCPCS: 71275; 74174; 81001; 82150; 83690; 84703; 85025; 86140; 86677; 96361; 96374; 96375; 99284; C9113; J2550; J7030; J7050; Q9967; 82040; 82247; 82310; 82374; 82435; 82565; 82947; 84075; 84132; 84155; 84295; 84450; 84460; 84520

== ENCOUNTER → 2018-06-16 | Outpatient (CLI) | payer BC ==
[2013-11-14 09:46] VITALS: BMI 41.6
[~2018-06-16] MED LIST changes: +LAMO100T56 PO; +PANT40TA65 PO
--- NOTE | 2018-06-16 11:34 | RADIOLOGY IMAGING REPORT ---
FACILITY: [facility] - [place] PATIENT NAME: Meredith John : 1985 MR: [id number] V: [id number] EXAM DATE: ORDERING PHYSICIAN: AZAR GONZALES TECHNOLOGIST: Location: [facility] - [place] Patient: Meredith John : 1985 Visit/Account:[id number] Date of Sevice: 06/16/2018 Exam type: US VENOUS DOPPLER - UPPER EXT RT History: Pain and swelling in the right elbow region, on control x11 years, Comparison: None. Findings: There is thrombus in one of the two right brachial veins and in the right basilic vein. These veins were noncompressible. The remaining veins of the right upper extremity appeared patent including the right internal jugular vein the right innominate vein the right subclavian vein the right axillary v ein the right ulnar vein radial vein and cephalic veins. IMPRESSION: 1. Findings are consistent with DVT in the right upper extremity veins including the right brachial vein. Also noted is thrombus identified in the right basilic vein. Results were called to AZAR GONZALES at 06/16/2018 11:26 AM. Report Dictated By: Savannah Ahn MD at 06/16/2018 11:23 AM Report E-Signed By: Savannah Ahn MD at 06/16/2018 11:30 AM WSN:[email or web address]
== END ==
LOC: US 10:02
PROVIDERS: ATTEND Physician Assistant
DX: I82.621 Acute embolism and thrombosis of deep veins of right upper extremity (principal); I82.890 Acute embolism and thrombosis of other specified veins

== ENCOUNTER → 2018-07-11 | Outpatient (CLI) | payer BC ==
[2013-11-14 09:46] VITALS: BMI 41.6
--- NOTE | 2018-07-11 20:26 | RADIOLOGY IMAGING REPORT ---
FACILITY: [facility] PATIENT NAME: Meredith John : 1985 MR: [id number] V: [id number] EXAM DATE: ORDERING PHYSICIAN: GABRIELLA JENNINGS TECHNOLOGIST: Location: [facility] Patient: Meredith John : 1985 Visit/Account:[id number] Date of Sevice: 07/11/2018 INDICATION: . History of right arm DVT. Pain. DATE: 07/11/2018 8:12 PM. TECHNIQUE: US VENOUS DOPPLER - UPPER EXT LT COMPARISON: Ultrasound June 16, 2018 FINDINGS: The left internal jugular vein, subclavian vein, axillary vein, brachial veins, radial vein , and ulnar vein are patent. The cephalic and basilic veins are also patent. IMPRESSION: No DVT in the left upper extremity. Report Dictated By: Sherry Gonzalez MD at 07/11/2018 8:12 PM Report E-Signed By: Sherry Gonzalez MD at 07/11/2018 8:23 PM WSN:[email or web address]
== END ==
LOC: US 19:20
PROVIDERS: ATTEND Nurse Practitioner Family
DX: M79.601 Pain in right arm (principal)

== ENCOUNTER 2018-08-11 14:33 | Outpatient (RCR) | payer BC ==
[2013-11-14 09:46] VITALS: BMI 41.6
[2018-08-11 14:54] VITALS: BP 129/88
--- NOTE | 2018-08-12 11:04 | ONCOLOGY CONSULTATION ---
EVENT DATE: August 11, 2018 REFERRING PHYSICIAN Josias Song MD REASON FOR CONSULTATION Evaluation and management of DVT, right upper extremity. HEMATOLOGY HISTORY Patient is a 33-year old female who presented with swelling and bruising of the right upper extremity so the patient ended by having an ultrasound of the right upper extremity, which showed DVT of the right brachial vein and also right basilic vein. This was done on June 16, 2018, and since then patient is maintained on Xarelto. Patient denies any family history of blood clotting and this is her first episode of blood clots and it seems that her right upper extremity DVT was idiopathic. Patient was not taking any oral contraceptive pills prior to that. PAST MEDICAL HISTORY 1. Epilepsy. 2. DVT, right upper extremity. 3. Depression. PAST SURGICAL HISTORY In 2017, patient had lumbar laminectomy. FAMILY HISTORY Mother had cervical cancer. There is also maternal history of hemochromatosis. SOCIAL HISTORY Patient is single with no children. She is a massage therapist. She drinks wine occasionally. She is an ex-smoker. CURRENT MEDICATIONS 1. Lamictal 100 mg b.i.d. 2. Trazodone 50 mg q.h.s. 3. Folic acid 1 mg daily. 4. Paxil 20 mg tablet, 60 mg q.a.m. ALLERGIES Toradol, which causes skin rash. Tramadol, which increases her seizure activity. REVIEW OF SYSTEMS CONSTITUTIONAL: She has sweating. HEENT: Ears: No tinnitus or hearing problem. Nose: No nasal discharge or epistaxis. Throat: No sore throat or mouth ulcers. Eyes: No diplopia or visual changes. RESPIRATORY: She has cough and shortness of breath. CARDIOVASCULAR: No chest pain, orthopnea, or paroxysmal nocturnal dyspnea (PND). No edema. No palpitations. GASTROINTESTINAL: No nausea or vomiting. No diarrhea or constipation. No change in bowel movements. No heartburn or swallowing difficulties. No abdominal pain. No jaundice. No hematemesis, melena or rectal bleeding. GENITOURINARY: Patient has had heavy periods for years, and she has been seen by a spice room worker, and she was offered uterine ablation, but the patient refused the procedure. As per patient, she has had heavy periods for a total of seven days every month. MUSCULOSKELETAL: She has pain in her hands and elbows. She has also stiff hands, especially after work. NEUROLOGICAL: She has occasional headache. HEMATOLOGIC/LYMPHATIC: She is weak and fatigued. SKIN: She has skin rash in the palms of her hands and lips. PSYCHIATRIC: No anxiety or depression. PHYSICAL EXAMINATION GENERAL: Looks stable. Well-developed, well-nourished, and in no acute distress. VITAL SIGNS: Blood pressure 129/88, pulse 105 per minute, respirations 16 per minute, temperature 99, pulse ox 93% on room air. HEENT: Head: Atraumatic. No sinus tenderness to palpation. Eyes: No icterus or conjunctivitis. Mouth and Throat: No oral thrush or mucositis. NECK: Supple. No cervical or supraclavicular lymphadenopathy. LUNGS: Clear to auscultation and percussion bilaterally. HEART: Regular rate and rhythm. No gallops, murmurs, clicks or rubs. ABDOMEN: Soft and lax. No tenderness. No hepatosplenomegaly. No masses. EXTREMITIES: No cyanosis, clubbing or edema. LYMPHATICS: No peripheral lymphadenopathy. NEUROLOGICAL: Conscious, alert and oriented x3. No focal motor or sensory deficits. PSYCHIATRIC: Mood and affect appear normal. SKIN: No skin rash, bruise or purpuric eruption. ASSESSMENT Deep venous thrombosis of right upper extremity involving right brachial vein and right basilic vein after presenting with swelling and bruising of the right upper extremity and improved by ultrasound done on June 16, 2018, and patient is maintained on Xarelto since then. Her episode of deep venous thrombosis was considered idiopathic as the patient does not have any predisposing causes prior to that. As thrombophilia is frequently encountered in patients with deep venous thrombosis of the right upper extremity, I am planning to run a battery of tests for the thrombophilia. Anatomical abnormalities like thoracic outlet syndrome could also be disposed to upper extremity deep venous thrombosis. I am planning to run the testing for thrombophilia and if it is positive I will extend her anticoagulation to six months and then we will stop after that. If the testing is negative, then we will check her Doppler ultrasound and if it is negative we can stop anticoagulation after three months. I explained that to the patient. She is agreeable to the plan of management. PLAN 1. Thrombophilia workup. 2. Patient to return in one week after the above for further evaluation and management. 3. Patient to contact us for any new concerns or complaints. MCKENZIE
== END 2018-09-04 15:01 | disposition home or self-care (01) ==
LOC: ONC 14:33
PROVIDERS: ATTEND Internal Medicine Hematology
DX: Z86.718 Personal history of other venous thrombosis and embolism (principal); Z79.01 Long term (current) use of anticoagulants; R53.1 Weakness; R53.83 Other fatigue; R05 Cough; R06.02 Shortness of breath; Z87.891 Personal history of nicotine dependence
CPT/HCPCS: 99202

== ENCOUNTER 2018-10-19 15:26 | Outpatient (RCR) | payer BC ==
[2013-11-14 09:46] VITALS: BMI 41.6
--- NOTE | 2018-09-29 15:17 | NUR ---
Called and left patient a message to contact our office regarding lab work.
--- NOTE | 2018-10-03 11:35 | NUR ---
Called and left patient message to contact our office regarding the need to arrange for lab work and follow up with the provider.
[~2018-10-19 15:26] MED LIST changes: -OMEP-125 PO; +OMEP-126 PO; -TRAZ50TA34 PO; +TRAZ50TA52 PO
== END 2018-10-23 15:56 | disposition home or self-care (01) ==
LOC: ONC 15:26
PROVIDERS: ATTEND Internal Medicine Hematology
DX: Z02.9 Encounter for administrative examinations, unspecified (principal)

== ENCOUNTER 2018-11-16 20:22 | Emergency (ER) | payer BC ==
[2013-11-14 09:46] VITALS: Wt 108.9 kg
--- NOTE | 2018-11-16 20:42 | ER Report ---
History and Physical Time Seen By MD: 20:38 Hx. of Stated Complaint: ABOUT AN HOUR AGO PT GOT RT HAND CLOSED IN HER CAR DOOR. THE DOOR LATCHED. THUMB AND INDEX FINGER NUMB, SOME SWELLING HPI/ROS CHIEF COMPLAINT: Right hand pain HISTORY OF PRESENT ILLNESS: 33-year-old female patient persisted emergency room with complaint of right hand pain. Patient states that she was resting her hand on the car when her niece slammed the car door. She states the door did latch. She states that closed right crossed her MCP joints. Patient states that she has significant amounts of pain across there. Seems to worse over the second and third MCP joints. Patient states that she did apply some ice. She is not taking any medication for this she denies any fevers or chills. Patient states she does have some numbness and tingling to the first and second fingers. Patient is able to move all fingers with slight pain. REVIEW OF SYSTEMS: Respiratory: No cough, no dyspnea. Cardiovascular: No chest pain, no palpitations. Gastrointestinal: No vomiting, no abdominal pain. Musculoskeletal: As noted above Allergies: Coded Allergies: ketorolac (Verified Allergy, Mild, RASH IN MOUTH , 11/16/18) tramadol (Verified Allergy, Mild, "LOWERS SEIZURE THRESHOLD", 11/16/18) pineapple (Verified Allergy, Unknown, 11/16/18) Uncoded Allergies: onions (Allergy, Unknown, 04/29/14) Home Meds Active Scripts Promethazine Hcl (PROMETHAZINE HCL) 25 Mg Tablet, 25 MG PO Q8H PRN for NAUSEA/VOMITING, #20 TAB 0 Refills Prov:NATALY WELLER MD 03/07/18 Albuterol Sulfate (VENTOLIN HFA) 18 Gm Inh, 2 PUFF INH Q4-6H PRN for SHORTNESS OF BREATH, #1 INH Prov:BASILIO LUGO 02/10/15 Reported Medications Lamotrigine (LAMICTAL) 100 Mg Tablet, 100 MG PO BID 06/10/18 Multivitamin (MULTIVITAMINS) 1 Each Capsule, 1 EACH PO, CAPSULE 10/27/17 Trazodone Hcl (TRAZODONE HCL) 50 Mg Tablet, 50 MG PO QHS 10/27/17 Folic Acid (FOLIC ACID) 1 Mg Tablet, 1 MG PO QDAY, TAB 12/17/15 Paroxetine Hcl (PAXIL) 20 Mg Tablet, 60 MG PO QAM, #30 2 Refills 11/13/13 Past Medical/Surgical History Patient has past medical history epilepsy, seizures, asthma, steroid shot, chron ic back pain, alcohol use, anxiety, depression. Patient has surgical history of laminectomy, IUD, repair of anal fissure. Reviewed Nurses Notes: Yes Hx Smoking: Yes Smoking Status: Current: Some Days Smoker Exposure to Second Hand Smoke?: Yes Hx Substance Use Disorder: No Hx Alcohol Use: Yes (few on weekends) Constitutional Vital Sign - Last 24 Hours 11/16/18 20:27 Temp 98.8 Pulse 87 Resp 12 Pulse Ox 90 Physical Exam General Appearance: The patient is alert, has no immediate need for airway protection and no current signs of toxicity. Respiratory: Chest is non tender, lungs are clear to auscultation. Cardiac: regular rate and rhythm Musculoskeletal: Neck: Neck is supple and non tender. Extremities have full range of motion and are non tender. Patient has tenderness to the right hand especially in the metacarpal region. Patient is able move all fingers without any difficulties. Skin: No rashes or lesions. DIFFERENTIAL DIAGNOSIS: After history and physical exam differential diagnosis was considered for fracture, contusion, sprain. Medical Decision Making EKG/Imaging Imaging HAND COMPLETE RIGHT Given history: hand pain. Crushed in car door COMPARISON STUDIES: NONE FINDINGS: Osseous structures: Intact without evidence of fracture . Joints: normal . Soft tissues: normal . IMPRESSION: Negative exam. Report Dictated By: Bryce Phelps MD at 11/16/2018 9:14 PM Report E-Signed By: Bryce Phelps MD at 11/16/2018 9:15 PM ED Course/Re-evaluation ED Course Patient was admitted to an exam room, history and physical were obtained. Differential diagnoses were considered. On examination lungs are clear, heart is regular, patient has tenderness to the right hand. X-rays done of the right hand which showed no acute fractures. Patient did request something for pain. Patient was given 1 g of Tylenol. Discussed the findings with the patient. We'll go ahead and discharge her home at this time. She is to ice her hand, limit activity by pain and follow-up with her primary care provider in one week she is having persistent pain for repeat x-ray. Patient verbalized understanding and agreement with plan. Patient did request a note for work for tomorrow and that was given. Decision to Disposition Date: Nov 16, 2018 Decision to Disposition Time: 21:19 Depart Departure Latest Vital Signs Vital Signs Date Time Temp Pulse Resp B/P (MAP) Pulse Ox O2 Delivery O2 Flow Rate FiO2 11/16/18 20:27 98.8 87 12 90 Impression: Primary Impression: Hand contusion Condition: Improved Disposition: HOME OR SELF-CARE Referrals: GABRIELLA BINGHAM MD (PCP) Patient Instructions: Contusion in Adults (ED) Additional Instructions: Limit activity by pain. Ice the hand 2-3 times a day for 10-15 minutes. Get plenty of rest. Follow up with your primary care provider in the next 1-2 weeks with any concerns. If you have persistent pain in the next week follow up with your primary care provider to discuss getting a repeat x-ray. Take Tylenol or Ibuprofen as needed for pain. Problem Qualifiers Primary Impression: Hand contusion Encounter type: initial encounter Laterality: right Qualified Codes: S60.221A - Contusion of right hand, initial encounter BASILIO LUGO Nov 16, 2018 20:42
[2018-11-16] MEDS ORDERED: ACETAMINOPHEN 500 MG TAB PO ONE (21:15)
--- NOTE | 2018-11-16 21:23 | RADIOLOGY IMAGING REPORT ---
FACILITY: [facility] PATIENT NAME: Meredith John : 1985 MR: [id number] V: [id number] EXAM DATE: ORDERING PHYSICIAN: BASILIO LUGO TECHNOLOGIST: Location: [facility] Patient: Meredith John : 1985 Visit/Account:[id number] Date of Sevice: 11/16/2018 HAND COMPLETE RIGHT Given history: hand pain. Crushed in car door COMPARISON STUDIES: NONE FINDINGS: Osseous structures: Intact without evidence of fracture . Joints: normal . Soft tissues: normal . IMPRESSION: Negative exam. Report Dictated By: Bryce Phelps MD at 11/16/2018 9:14 PM Report E-Signed By: Bryce Phelps MD at 11/16/2018 9:15 PM [id number]
== END 2018-11-16 21:23 | disposition home or self-care (01) ==
LOC: ER 20:47
DX: S60.221A Contusion of right hand, initial encounter (principal)
CPT/HCPCS: 99283

== ENCOUNTER → 2018-11-22 | Outpatient (CLI) | payer BC ==
[2013-11-14 09:46] VITALS: BMI 41.6
[~2018-11-22] MED LIST changes: +GADOBENATE 529MG/1ML 15ML VIAL IVP ONE
--- NOTE | 2018-11-22 14:44 | RADIOLOGY IMAGING REPORT ---
FACILITY: [facility] PATIENT NAME: Meredith John : 1985 MR: [id number] V: [id number] EXAM DATE: ORDERING PHYSICIAN: JEREMIAH THOMPSON TECHNOLOGIST: Location: [facility] [place] Patient: Meredith John : 1985 Visit/Account:[id number] Date of Sevice: 11/22/2018 MR BRAIN/BRAIN STEM W/ & W/O CON Comparisons: November 29, 2016 Additional pertinent history: Increased memory issues TECHNIQUE: Multiplanar, multisequence brain MRI was performed with and without gadolinium contrast. CONTRAST: 17 ml of MultiHance. FINDINGS: Sagittal midline structures and craniocervical junction: Negative. Midline shift: None. Ventricles: Negative. Brain parenchyma: Diffusion weighted imaging: Negative. Gradient sequence: Negative. T2 weighted FLAIR images: Negative. Extra-axial spaces: Negative. Dural venous sinuses and major arterial flow voids: Negative. Intracranial enhancement: Negative.. Mastoid air cells and paranasal sinuses: Negative. Surrounding soft tissues and orbits: Negative. Impression: Normal brain MRI with and without contrast. Report Dictated By: Joaquín Smith MD at 11/22/2018 2:33 PM Report E-Signed By: Joaquín Smith MD at 11/22/2018 2:36 PM [id number]
== END ==
LOC: MRI 00:43
PROVIDERS: ATTEND Nurse Practitioner Family
DX: R41.3 Other amnesia (principal); R56.9 Unspecified convulsions; G43.709 Chronic migraine without aura, not intractable, without status migrainosus
CPT/HCPCS: 70553; A9577